=== PATIENT | male | born 1955 | race Two or more races ===

== ENCOUNTER 2025-01-02 07:15 | Inpatient (IN) | payer OTHER ==
[~2025-01-02] VITALS: Ht 190.5 cm; Wt 108.9 kg
[2025-01-02 08:41] LABS: HEMATOCRIT 40.6 % (39.0-48.0); HEMOGLOBIN 13.4 g/dL (13-16.00); MEAN CELL VOLUME 79.6 fL (80.0-100.00); MEAN CORPUSCULAR HEMOGLOBIN 26.3 pg (27.00-32.0); MEAN CORPUSCULAR HGB CONC 33.1 g/dl (32.0-36.0); PLATELET COUNT 191 K/uL (150-450); RED CELL DISTRIBUTION WIDTH 14.3 % (11.5-14.5)
[2025-01-02 08:45] LABS: PH,URINE 5.5 (5.0-8.0); URINE APPEARANCE Clear; URINE BILIRRUBIN Negative (NEGATIVE); URINE BLOOD Negative; URINE COLOR Yellow; URINE GLUCOSE Negative (NEGATIVE); URINE KETONE Negative (NEGATIVE); URINE LEUKOCYTE Negative; URINE NITRATE Negative; URINE PROTEIN Negative (NEGATIVE); URINE UROBILINOGEN 0.2 E.U./dl
[2025-01-02] MEDS ORDERED: CARVEDILOL25 MG (08:51)
[2025-01-02] MEDS ORDERED: LOSARTAN-HCTZ1 EAC1 PO (08:51)
[2025-01-02] MEDS ORDERED: SYNTHROID150 MCG PO (08:51)
[2025-01-02] MEDS ORDERED: MAXIMUM D3325 MCG PO (08:52)
[2025-01-02 08:57] VITALS: BP 180/100; BP 200/110
[2025-01-02 09:28] LABS: URINE EPITHELIAL CELLS 0.7 uL (0.0-38.8); URINE WBC 1.7 uL (0.0-23.2)
[2025-01-02 09:29] LABS: INR 1.37; PARTIAL THROMBOPLASTIN TIME 31.9 SECONDS (22.0-34.0); PROTHROMBIN TIME 14.6 SECONDS (9.0-11.5)
[2025-01-02 09:33] LABS: ALBUMIN 4.2 gm/dL (3.4-5.0); BILIRUBIN TOTAL 0.6 mg/dL (0.3-1.2); CALCIUM 9.7 mg/dL (8.5-10.1); CHOL HDL RATIO 3.8 (0-5.0); CREATININE SERUM 1.01 mg/dL (0.70-1.30); GFR 73.03; GLOBULINA 3.7 G/DL (2.4-3.5); POTASSIUM 4.36 mEq/L (3.5-5.1); TOTAL PROTEIN 7.9 gm/dL (6.4-8.2)
[2025-01-02 10:58] LABS: RH POSITIVE
[2025-01-07] MEDS ORDERED: KETOROLAC TROMETHAMINE 60 MG VIAL IM ONE (12:19)
[2025-01-07] MEDS ORDERED: CEFAZOLIN SODIUM 1,000 MG VIAL ONE ×3 (12:20→18:07)
[2025-01-07] MEDS ORDERED: TRANEXAMIC ACID 100MG/1ML (1000MG) AMPUL IV ONE (12:20)
[2025-01-07] MEDS ORDERED: MORPHINE SULFATE 4 MG/ML CARTRIDGE IV ONE (13:00)
[2025-01-07] MEDS ORDERED: SODIUM CHLORIDE 0.45 % 1,000 ML IV SCH (14:15)
[2025-01-07] MEDS ORDERED: MORPHINE SULFATE 4 MG/ML CARTRIDGE IV PRN (14:15)
[2025-01-07] MEDS ORDERED: OxyCODONE HCL 5 MG TABLET (ROXICODONE) PO PRN (14:15)
[2025-01-07] MEDS ORDERED: ONDANSETRON HCL 2 MG/ML VIAL IV PRN (14:15)
[2025-01-07] MEDS ORDERED: hydrALAZINE HCL 20 MG VIAL IV PRN (14:45)
[2025-01-07] MEDS ORDERED: CEFAZOLIN SODIUM 1,000 MG VIAL IV SCH (17:00)
[2025-01-07] MEDS ORDERED: GABAPENTIN 300 MG CAPSULE PO SCH (17:00)
[2025-01-07] MEDS ORDERED: ACETAMINOPHEN 500 MG GEL..CAP PO SCH (18:00)
[2025-01-07] MEDS ORDERED: CARVEDILOL 25 MG TABLET PO SCH (21:00)
[2025-01-07 21:11] VITALS: BP 166/73; O2SAT 95
[2025-01-08] MEDS ORDERED: LEVOTHYROXINE SODIUM 150 MCG TABLET PO SCH (06:00)
[2025-01-08 07:13] LABS: HEMATOCRIT 30.8 % (39.0-48.0); MEAN CELL VOLUME 78.9 fL (80.0-100.00); MEAN CORPUSCULAR HGB CONC 33.3 g/dl (32.0-36.0); PLATELET COUNT 160 K/uL (150-450)
[2025-01-08 08:19] LABS: HEMOGLOBIN 10.2 g/dL (13-16.00); MEAN CORPUSCULAR HEMOGLOBIN 26.1 pg (27.00-32.0)
[2025-01-08 08:27] VITALS: BP 130/68; O2SAT 96
[2025-01-08] MEDS ORDERED: PERCOCET 5-3251 EACH PO (08:40)
[2025-01-08] MEDS ORDERED: DUI500 PO (08:40)
[2025-01-08] MEDS ORDERED: ELIQUIS2.5 MG PO (08:40)
[2025-01-08] MEDS ORDERED: SENNOSIDES 1 TAB TABLET PO SCH (09:00)
[2025-01-08] MEDS ORDERED: LOSARTAN/HYDROCHLOROTHIAZIDE 1 UDTAB TABLET PO SCH (09:00)
[2025-01-08] MEDS ORDERED: APIXABAN 2.5 MG TABLET PO SCH (09:00)
[2025-01-08] MEDS ORDERED: HYDROGEN PEROXIDE 118 ML SOLUTION TOP ONE (10:15)
[2025-01-08] MEDS ORDERED: Cyanocobalamin/Mecobalamin 1 TAB.SL SL NR (13:50)
[2025-01-08 16:00] VITALS: BP 119/63; O2SAT 96
[2025-01-08] MEDS ORDERED: SOD FERRIC GLUC COMPLX/SUCROSE 62.5 MG/5 ML AMPUL IV SCH (17:00)
[2025-01-08] MEDS ORDERED: VITAMIN B COMPLEX 1 EACH PO SCH (17:00)
[2025-01-09] VITALS: BP 137/60; O2SAT 95
[2025-01-09 07:17] LABS: HEMATOCRIT 27.4 % (39.0-48.0); MEAN CELL VOLUME 77.4 fL (80.0-100.00); MEAN CORPUSCULAR HEMOGLOBIN 26.9 pg (27.00-32.0); MEAN CORPUSCULAR HGB CONC 34.8 g/dl (32.0-36.0); PLATELET COUNT 144 K/uL (150-450); RED BLOOD COUNT 3.53 M/uL (4.00-6.00); RED CELL DISTRIBUTION WIDTH 14.4 % (11.5-14.5)
[2025-01-09 07:29] LABS: HEMOGLOBIN 9.5 g/dL (13-16.00)
[2025-01-09] MEDS ORDERED: Cyanocobalamin/Mecobalamin 1 TAB.SL SL SCH (09:00)
[2025-01-09] MEDS ORDERED: IRON FUM,PS/FOLIC ACID/VITC/B3 1 CAP CAPSULE PO SCH (09:00)
[2025-01-09 10:17] VITALS: BP 145/72; O2SAT 97
[2025-01-09 16:54] VITALS: BP 136/62; O2SAT 98
== END 2025-01-09 18:54 | disposition home or self-care (01) | DRG 470 ==
LOC: O/R 01-07 05:50 → SURH 01-07 07:15 → SURG 01-07 14:48
PROVIDERS: ADMIT Orthopaedic Surgery; ATTEND Orthopaedic Surgery
PROC: 0SUD07Z Supplement Left Knee Joint with Autologous Tissue Substitute, Open Approach (ICD-10-PCS; 2025-01-07)
PROC: 0SRD0J9 Replacement of Left Knee Joint with Synthetic Substitute, Cemented, Open Approach (ICD-10-PCS; principal; 2025-01-07 13:00)
DX: M17.12 Unilateral primary osteoarthritis, left knee (principal); D62 Acute posthemorrhagic anemia; M22.12 Recurrent subluxation of patella, left knee

== ENCOUNTER 2025-01-06 10:54 | Outpatient (CLI) | payer OTHER ==
[~2025-01-06] VITALS: Ht 190.5 cm; Wt 108.4 kg
[~2025-01-06 10:54] MED LIST: CARVEDILOL25 MG; LOSARTAN-HCTZ1 EAC1 PO; MAXIMUM D3325 MCG PO; SYNTHROID150 MCG PO
[2025-01-06 11:30] VITALS: BP 160/80; BP 208/90
[2025-01-06 13:46] LABS: COL EPI 166 SECONDS (82-175)
== END 2025-01-06 10:55 | disposition home or self-care (01) ==
LOC: LAB 10:54
PROVIDERS: ATTEND Internal Medicine
DX: D68.9 Coagulation defect, unspecified (principal)